=== PATIENT | female | born 1970 | race Caucasian/White ===

== ENCOUNTER 2018-05-04 00:33 | Emergency (ER) | payer MEDICAID ==
[~2018-05-04] VITALS: Ht 152.4 cm; Wt 54.2 kg
[2018-05-04 00:38] VITALS: Ht 152.4 cm; Wt 54.2 kg
[2018-05-04] MEDS ORDERED: NAPR-985 PO (05:01)
--- NOTE | 2018-05-04 05:09 | ERD ---
ER Documentation Chief Complaint Chief Complaint L-EAR PAIN SINCE LAST NIGHT W/ SOME "HEARING LOSS" HPI 48-year-old female patient with a past medical history of diabetes presents to the ED complaining of left ear pain that started last night. Patient reports that she has some slight hearing loss. Patient reports that this is the first time this is happened. Rates her pain a 5 out of 10. Describes as achy. Reports that she also has a left-sided headache. Denies taking any medications. Denies any fever, chills, nausea, vomiting, neck stiffness, abdominal pain, chest pain, shortness of breath. Denies any head or neck injuries. Denies any fever, chills. ROS All systems reviewed and are negative except as per history of present illness. Medications Home Meds Active Scripts Naproxen* (Naprosyn*) 500 Mg Tablet, 500 MG PO BID PRN for PAIN AND/OR INFLAMMATION, #30 TAB Prov:CAIO VALENZUELA PA-C 05/04/18 PMhx/Soc Hx Miscellaneous Medical Probl: Yes (DM) Hx Alcohol Use: No Hx Substance Use: No Hx Tobacco Use: No Smoking Status: Never smoker FmHx Family History: diabetes (Mother); No coronary disease Physical Exam Vitals Vital Signs Date Temp Pulse Resp B/P (MAP) Pulse Ox O2 O2 Flow FiO2 Time Delivery Rate 05/04/18 98.3 86 20 127/77 99 Room Air 05:21 (94) 05/04/18 97.5 89 16 151/74 99 00:38 (99) Physical Exam Const: [id number], well-nourished. In no acute distress. Head: Atraumatic, normocephalic Eyes: Normal Conjunctiva without injection. No purulent discharge. PERRLA. EOMI ENT: Normal external ear. Ear canal without erythema. Tympanic membrane pearly mackay without effusion or bulging. Nasal canal clear with normal turbinates. Moist oropharynx without tonsillar exudates. Non-erythematous pharynx. Uvula midline. No drooling. No trismus. Auditory acuity intact Neck: No cervical midline tenderness. Full range of motion. No meningismus. No cervical lymphadenopathy. No JVD. Resp: Clear to auscultation bilaterally. No wheezing, rhonchi, rales, or crackles. No accessory muscle use. No retractions. Cardio: Regular rate and rhythm. No murmurs, rubs or gallops. Abd: Soft, non tender, non distended. Normal bowel sounds. No palpable masses. No rebound tenderness. No guarding. Negative McBurney's Point. Negative Lopez's Sign. Skin: Normal skin turgor. No petechiae or rashes Back: No midline tenderness. No CVA tenderness. Ext: No cyanosis, or edema. Distal pulses intact bilaterally. Neur: Awake and alert. Normal gait. Normal coordination. Cranial Nerves II- VII intact. Normal finger to nose. Muscle strength 5/5. Sensation intact. Psych: Normal Mood and Affect Procedures/MDM 48-year-old female patient with no significant past medical history presents to the ED complaining of left-sided ear pain, tinnitus and left-sided headache. Patient is afebrile and nontoxic-appearing. Patient has a blood pressure of 151/74. Blood Pressure Assessment: Patient's blood pressure was elevated (>120/80) but appears stable without evidence of hypertension emergency or urgency. The patient was counseled about the risks of hypertension and urged to pursue outpatient monitoring and therapy within a week with their primary care physician. Patient denied wanting pain medications here in the ED. low suspicion for intracranial bleed, subarachnoid hemorrhage, meningitis, TIA, stroke, subdural hematoma, epidural hematoma, or other emergent conditions. CT of the brain without contrast does not show any acute findings of the brain or the temporal region. Patient instructed to follow-up with an ENT specialist for further evaluation and treatment. Diagnosis: Headache Discharge medications: Naproxen Follow up with primary care physician in 1-2 days. Instructed patient to return to the ED sooner for any worsening symptoms. Patient's questions were answered. Patient is hemodynamically stable. Patient understood and agreed with discharge plan. Patient discharged stable. Disclaimer: Inadvertent spelling and grammatical errors are likely due to EHR/dictation software use and do not reflect on the overall quality of patient care. Also, please note that the electronic time recorded on this note does not necessarily reflect the actual time of the patient encounter. Departure Diagnosis: Primary Impression: Headache Headache type: unspecified Headache chronicity pattern: unspecified pattern Intractability: not intractable Qualified Codes: R51 - Headache Additional Impression: Left ear pain Patient Instructions: Tinnitus (Ringing in the Ears), Earache W/O Infection (Adult), Headache, Unspecified Referrals: [facility] YOU HAVE RECEIVED A MEDICAL SCREENING EXAM AND THE RESULTS INDICATE THAT YOU DO NOT HAVE A CONDITION THAT REQUIRES URGENT TREATMENT IN THE EMERGENCY DEPARTMENT. FURTHER EVALUATION AND TREATMENT OF YOUR CONDITION CAN WAIT UNTIL YOU ARE SEEN IN YOUR DOCTORS OFFICE WITHIN THE NEXT 1-2 DAYS. IT IS YOUR RESPONSIBILITY TO MAKE AN APPOINTMENT FOR FOLOW-UP CARE. IF YOU HAVE A PRIMARY DOCTOR --you should call your primary doctor and schedule an appointment IF YOU DO NOT HAVE A PRIMARY DOCTOR YOU CAN CALL OUR PHYSICIAN REFERRAL HOTLINE AT IF YOU CAN NOT AFFORD TO SEE A PHYSICIAN YOU CAN CHOSE FROM THE FOLLOWING [facility] [address] [facility]. [facility] [address] [facility] [employer] [facility] [address] [facility] [facility] [address] [facility]. [facility] [address] [facility]. [facility] [address] [facility]. [facility] YOU HAVE RECEIVED A MEDICAL SCREENING EXAM AND THE RESULTS INDICATE THAT YOU DO NOT HAVE A CONDITION THAT REQUIRES URGENT TREATMENT IN THE EMERGENCY DEPARTMENT. FURTHER EVALUATION AND TREATMENT OF YOUR CONDITION CAN WAIT UNTIL YOU ARE SEEN IN YOUR DOCTORS OFFICE WITHIN THE NEXT 1-2 DAYS. IT IS YOUR RESPONSIBILITY TO MAKE AN APPOINTMENT FOR FOLOW-UP CARE. IF YOU HAVE A PRIMARY DOCTOR --you should call your primary doctor and schedule and appointment IF YOU DO NOT HAVE A PRIMARY DOCTOR YOU CAN CALL OUR PHYSICIAN REFERRAL HOTLINE AT . IF YOU CAN NOT AFFORD TO SEE A PHYSICIAN YOU CAN CHOSE FROM THE FOLLOWING [facility]: [facility] [address] [place] [address] [facility] [address] [place] [address] [facility] [address] [place] [address] [facility]/SPECIALTIES Additional Instructions: Llame al doctor FRANCISCO y faith rochelle JULIAN PARA DENTRO DE 2-3 HUYNH para rochelle remisin a nilda a un especialista en orejas nariz garganta.Dgale a la secretaria que nosotros le instruimos hacer esta julian.Avise o llame si fry condicin se empeora antes de la julian. Regresa aqui si peor o no mejor. CAIO VALENZUELA PA-C May 04, 2018 05:09
[2018-05-04 05:21] VITALS: BP 127/77; PULSE 86; RESP 20
== END 2018-05-04 05:22 | disposition home or self-care (01) ==
LOC: FTE 00:33
DX: R51 Headache (principal); E11.9 Type 2 diabetes mellitus without complications
CPT/HCPCS: 70450; 70480; Z7502

== ENCOUNTER 2018-12-11 15:47 | Emergency (ER) | payer MEDICAID ==
[~2018-12-11] VITALS: Ht 162.6 cm; Wt 52.2 kg
[~2018-12-11 15:47] MED LIST: ACET-141 PO; NAPH15DR OP; NAPR-985 PO; POLY10DR19 LEFT EYE
[2018-12-11 16:19] VITALS: Ht 162.6 cm; Wt 52.2 kg
[2018-12-11] MEDS ORDERED: ACETAMINOPHEN 325 MG TAB PO ONE (17:30)
[2018-12-11 17:47] VITALS: BP 124/73; PULSE 70; RESP 16
== END 2018-12-11 17:48 | disposition home or self-care (01) ==
LOC: FTE 15:47
DX: H10.9 Unspecified conjunctivitis (principal); E11.9 Type 2 diabetes mellitus without complications
CPT/HCPCS: Z7502; Z7610; 99283